=== PATIENT | female | born 1935 | race Two or more races ===

== ENCOUNTER 2017-03-31 20:09 | Inpatient (IN) | payer MEDICARE, MEDICAID ==
[~2017-03-31] VITALS: Ht 134.6 cm; Wt 50.4 kg
[~2017-03-31 20:09] MED LIST: AMLO5TAB2 PO; ATOR40TA78 PO; CALC0.25 PO; CEFD300C37 PO; MEMA5TAB PO; METO25TA35 PO; NITR0.4T SL; VIT1TABL73 PO
[2017-03-31] MEDS ORDERED: ASPI-515 PO (20:19)
[2017-03-31] MEDS ORDERED: SODIUM CHLORIDE FLUSH 10ML SYR IVF ONE (20:30)
[2017-03-31 20:54] LABS: BASOPHILS # (AUTO) 0.07 x10^3/uL (0-0.1); BASOPHILS % (AUTO) 1 % (0-1); EOSINOPHILS # (AUTO) 0.34 x10^3/uL (0-0.4); EOSINOPHILS % (AUTO) 3 % (1-7); LYMPHOCYTES # (AUTO) 3.74 x10^3/uL (1-3.4); LYMPHOCYTES % (AUTO) 36 % (22-44); MD NO; MEAN CORPUSCULAR HEMOGLOBIN 19.1 pg (27.0-34.8); MEAN CORPUSCULAR VOLUME 61.6 fL (80-100); MEAN PLATELET VOLUME 9.4 fL (7.4-10.4); MONOCYTES # (AUTO) 0.53 x10^3/uL (0.2-0.8); MONOCYTES % (AUTO) 5 % (2-9); NEUTROPHILS # (AUTO) 5.65 x10^3/uL (1.8-6.8); NEUTROPHILS % (AUTO) 55 % (42-75); PLATELET COUNT 258 x10^3/uL (130-400); RED BLOOD COUNT 5.38 x10^6/uL (3.82-5.3)
[2017-03-31] MEDS ORDERED: CEFTRIAXONE PMX 1GM/50ML 50 ML IVPB ONE (21:00)
[2017-03-31 21:06] LABS: ALANINE AMINOTRANSFERASE 41 U/L (12-78); ALBUMIN 3.6 g/dL (3.4-5.0); ANION GAP 12 mmol/L (5-15); CALCIUM 8.5 mg/dL (8.5-10.1); CHLORIDE 111 mmol/L (98-107)
[2017-03-31] MEDS ORDERED: CEFTRIAXONE PMX 1GM/50ML 50 ML ONE (21:07)
[2017-03-31 21:10] LABS: ALKALINE PHOSPHATASE 225 U/L (45-117); BILIRUBIN,TOTAL 0.6 mg/dL (0.2-1.0); TOTAL PROTEIN 7.5 g/dL (6.4-8.2); TROPONIN I < 0.015 ng/mL (0.000-0.045)
[2017-03-31] MEDS ORDERED: SODIUM CHLORIDE 0.9% 1,000ML IVBOLUS ONE (21:30)
[2017-03-31] MEDS ORDERED: SODIUM CHLORIDE 0.9% 1,000 ML IV ONE (22:01)
[2017-03-31] MEDS ORDERED: SODIUM CHLORIDE 0.9% 1,000 ML IV SCH (22:14)
[2017-03-31] MEDS: CEFTRIAXONE PMX 1GM/50ML 50 ML IV SCH (22:25)
[2017-03-31] MEDS ORDERED: SODIUM CHLORIDE FLUSH 10ML SYR IVF PRN (22:30)
[2017-03-31] MEDS ORDERED: AZITHROMYCIN 500 MG in SODIUM CHLORIDE 0.9% 250 ML IV SCH (22:30)
[2017-03-31] MEDS ORDERED: ACETAMINOPHEN 325 MG TABLET PO PRN (22:30)
[2017-03-31] MEDS ORDERED: ONDANSETRON 2MG/ML, 2ML IVPush PRN (22:30)
[2017-03-31 23:23] VITALS: BP 144/74
[2017-04-01] MEDS: MEMANTINE 5MG TABLET PO SCH ×3 (00:47→20:24)
[2017-04-01] MEDS: HEPARIN 5,000 UNITS/ML, 1ML SQ SCH ×3 (00:48→22:56)
[2017-04-01 03:24] VITALS: BP 128/72
[2017-04-01 05:29] LABS: BASOPHILS % (AUTO) 1 % (0-1); EOSINOPHILS # (AUTO) 0.19 x10^3/uL (0-0.4); EOSINOPHILS % (AUTO) 3 % (1-7); LYMPHOCYTES # (AUTO) 2.15 x10^3/uL (1-3.4); LYMPHOCYTES % (AUTO) 28 % (22-44); MD NO; MEAN CORPUSCULAR HEMOGLOBIN 19.4 pg (27.0-34.8); MEAN CORPUSCULAR HGB CONC 31.3 g/dL (32.4-35.8); MEAN CORPUSCULAR VOLUME 62.1 fL (80-100); MEAN PLATELET VOLUME 9.5 fL (7.4-10.4); MONOCYTES # (AUTO) 0.51 x10^3/uL (0.2-0.8); MONOCYTES % (AUTO) 7 % (2-9); NEUTROPHILS # (AUTO) 4.83 x10^3/uL (1.8-6.8); NEUTROPHILS % (AUTO) 62 % (42-75); PLATELET COUNT 205 x10^3/uL (130-400); RED BLOOD COUNT 4.38 x10^6/uL (3.82-5.3); RED CELL DISTRIBUTION WIDTH 16.2 % (9.6-15.2)
[2017-04-01 05:43] LABS: CHLORIDE 117 mmol/L (98-107)
[2017-04-01 06:03] LABS: ANION GAP 9 mmol/L (5-15); CALCIUM 7.8 mg/dL (8.5-10.1); CREATININE 2.05 mg/dL (0.55-1.02); TROPONIN I 0.016 ng/mL (0.000-0.045)
[2017-04-01 08:02] VITALS: BP 138/72
[2017-04-01] MEDS ORDERED: ASPIRIN 81 MG TABLET EC PO SCH (09:00)
[2017-04-01] MEDS: METOPROLOL TARTRATE 25 MG TABLET PO SCH ×2 (09:10→20:24)
[2017-04-01] MEDS: CALCITRIOL 0.25 MCG CAPSULE PO SCH (09:10)
[2017-04-01] MEDS: MULTIVITS,STRESS FORMULA 1 TABLET PO SCH (09:10)
[2017-04-01] MEDS: ASPIRIN 81 MG TABLET CHEW PO SCH (09:30)
[2017-04-01 14:33] VITALS: BP 148/66
[2017-04-01] MEDS ORDERED: SODIUM CHLORIDE 0.9% 1,000 ML IV SCH (18:00)
[2017-04-01] MEDS ORDERED: SENNA/DOCUSATE TABLET PO PRN (18:00)
[2017-04-01] MEDS ORDERED: MAGNESIUM CITRATE 300ML ORAL SOL PO PRN (18:00)
[2017-04-01] MEDS ORDERED: GLYCERIN ADULT SUPP PR PRN (18:00)
[2017-04-01] MEDS ORDERED: POLYETHYLENE GLYCOL 17 GM PACKET PO ONE (18:00)
[2017-04-01 20:00] VITALS: BP 124/74
[2017-04-01] MEDS ORDERED: ATORVASTATIN 40 MG TABLET PO SCH (21:00)
[2017-04-01] MEDS: CEFTRIAXONE PMX 1GM/50ML 50 ML IV SCH (22:56)
[2017-04-02 01:16] VITALS: BP 125/55
[2017-04-02 06:13] LABS: CHLORIDE 116 mmol/L (98-107)
[2017-04-02 06:14] LABS: BASOPHILS % (AUTO) 1 % (0-1); EOSINOPHILS # (AUTO) 0.35 x10^3/uL (0-0.4); EOSINOPHILS % (AUTO) 5 % (1-7); LYMPHOCYTES # (AUTO) 3.11 x10^3/uL (1-3.4); LYMPHOCYTES % (AUTO) 41 % (22-44); MD NO; MEAN CORPUSCULAR HEMOGLOBIN 19.3 pg (27.0-34.8); MEAN CORPUSCULAR HGB CONC 30.9 g/dL (32.4-35.8); MEAN CORPUSCULAR VOLUME 62.5 fL (80-100); MEAN PLATELET VOLUME 9.8 fL (7.4-10.4); MONOCYTES # (AUTO) 0.47 x10^3/uL (0.2-0.8); MONOCYTES % (AUTO) 6 % (2-9); NEUTROPHILS % (AUTO) 47 % (42-75); PLATELET COUNT 225 x10^3/uL (130-400); RED BLOOD COUNT 4.63 x10^6/uL (3.82-5.3); RED CELL DISTRIBUTION WIDTH 16.5 % (9.6-15.2)
[2017-04-02 06:17] LABS: ANION GAP 12 mmol/L (5-15); CALCIUM 7.9 mg/dL (8.5-10.1); CREATININE 1.89 mg/dL (0.55-1.02)
[2017-04-02 06:22] LABS: MICROSCOPIC AUTO
[2017-04-02 06:25] LABS: CULTURE INDICATED? YES
[2017-04-02 06:40] VITALS: BP 182/79
[2017-04-02] MEDS ORDERED: NITR50CA11 PO (07:41)
[2017-04-02] MEDS ORDERED: [UNRECOGNIZED DRUG - REMARK] XX PRN (08:00)
[2017-04-02] MEDS: METOPROLOL TARTRATE 25 MG TABLET PO SCH (08:18)
[2017-04-02] MEDS: ASPIRIN 81 MG TABLET CHEW PO SCH (08:18)
[2017-04-02] MEDS: MEMANTINE 5MG TABLET PO SCH (08:18)
[2017-04-02] MEDS: HEPARIN 5,000 UNITS/ML, 1ML SQ SCH (08:18)
[2017-04-02] MEDS: MULTIVITS,STRESS FORMULA 1 TABLET PO SCH (08:18)
[2017-04-02] MEDS: CALCITRIOL 0.25 MCG CAPSULE PO SCH (08:18)
[2017-04-02] MEDS ORDERED: NITROFURANTOIN 50 MG CAPSULE PO SCH (09:00)
== END 2017-04-02 12:53 | disposition home or self-care (01) | DRG 682 ==
LOC: ED 21:57 → EDIP 22:01 → SUATTDRO 22:08 → 4WST 23:28
PROVIDERS: ADMIT Hospitalist; ATTEND Hospitalist
DX: N17.9 Acute kidney failure, unspecified (principal); J96.01 Acute respiratory failure with hypoxia; E87.2 Acidosis; N18.4 Chronic kidney disease, stage 4 (severe); F03.90 Unspecified dementia, unspecified severity, without behavioral disturbance, psychotic disturbance, mood disturbance, and anxiety; D50.9 Iron deficiency anemia, unspecified; E78.5 Hyperlipidemia, unspecified; I12.9 Hypertensive chronic kidney disease with stage 1 through stage 4 chronic kidney disease, or unspecified chronic kidney disease; R32 Unspecified urinary incontinence; Z66 Do not resuscitate; D72.829 Elevated white blood cell count, unspecified; Z87.891 Personal history of nicotine dependence; Z86.73 Personal history of transient ischemic attack (TIA), and cerebral infarction without residual deficits
CPT/HCPCS: 36415; 36600; 71045; 71250; 78582; 80048; 80053; 81001; 82803; 83605; 83735; 83880; 84100; 84484; 85025; 85379; 87040; 87077; 87086; 87186; 93005; 96365; J0456; J0696; J1644; A9540; A9558; C9898; J7030; J7050

== ENCOUNTER → 2017-07-19 | Outpatient (CLI) | payer MEDICARE, MEDICAID ==
[~2017-07-19] MED LIST changes: +AMLO10TA2 PO; +ASPI-515 PO; +FOLI0.8T3 PO; +NITR50CA11 PO; +[UNRECOGNIZED DRUG - OTHER]; +[UNRECOGNIZED DRUG - OTHER] PO; +[UNRECOGNIZED DRUG - OTHER] PO; +[UNRECOGNIZED DRUG - SUPPLY]
== END | disposition home or self-care (01) ==
LOC: CFH 10:57 → MERGE 11:30
PROVIDERS: ATTEND Internal Medicine Nephrology
DX: I12.9 Hypertensive chronic kidney disease with stage 1 through stage 4 chronic kidney disease, or unspecified chronic kidney disease (principal); N18.4 Chronic kidney disease, stage 4 (severe); D64.9 Anemia, unspecified; N25.81 Secondary hyperparathyroidism of renal origin; E55.9 Vitamin D deficiency, unspecified; R80.9 Proteinuria, unspecified
CPT/HCPCS: 76770

== ENCOUNTER 2018-05-13 05:08 | Inpatient (IN) | payer MEDICARE, MEDICAID ==
[~2018-05-13] VITALS: Ht 142.2 cm; Wt 45.7 kg
[~2018-05-13 05:08] MED LIST changes: +AMLO-150 PO; -AMLO10TA2 PO; +AMLO10TA8 PO; +AMLO2.5T5 PO; -AMLO5TAB2 PO; +BISA10SU54 PR; +ERTA1VIA IV; +MEMA5TAB14 PO; +ONDA4TAB13 SL; +POLY17PO5 PO; +SENN-177 PO; +SENN-99 PO; +SODI650T PO; +ZONI25CA2 PO; +ZONI50CA2 PO
--- NOTE | 2018-05-13 05:08 | NUR ---
PT BIB EMS FROM HOME ACCOMPANIED BY DAUGHTER. PT HAD SZ AT HOME, GIVEN VERSED 2.5MG IM BY EMS AND IS NOW UNRESPONSIVE. PT HAD ONSET OF SZ IN 2018. DAUGHTER STATES PT DOES NOT HAVE GRAND MAL SEIZURE, ONLY AFFECTED AREA IS FROM NECK UP. MD AT BEDSIDE, EKG DONE. PT PLACED ON MONITOR, IV STARTED BY YANETH GREEN.
[2018-05-13] MEDS ORDERED: SODIUM CHLORIDE FLUSH 10ML SYR IVF ONE (05:30)
[2018-05-13 05:50] LABS: ALANINE AMINOTRANSFERASE 18 U/L (12-78); ALBUMIN 3.4 g/dL (3.4-5.0); ANION GAP 14 mmol/L (5-15); CALCIUM 8.8 mg/dL (8.5-10.1); CHLORIDE 113 mmol/L (98-107)
[2018-05-13 05:52] LABS: ALKALINE PHOSPHATASE 114 U/L (45-117); BILIRUBIN,TOTAL 0.9 mg/dL (0.2-1.0); CREATININE 2.41 mg/dL (0.55-1.02); TOTAL PROTEIN 6.5 g/dL (6.4-8.2)
[2018-05-13 06:03] LABS: MEAN CORPUSCULAR HEMOGLOBIN 19.4 pg (27.0-34.8); MEAN CORPUSCULAR HGB CONC 31.2 g/dL (32.4-35.8); MEAN CORPUSCULAR VOLUME 62.3 fL (80-100); MEAN PLATELET VOLUME 12.9 fL (7.4-10.4); PLATELET COUNT 276 x10^3/uL (130-400); RED BLOOD COUNT 5.62 x10^6/uL (3.82-5.3)
--- NOTE | 2018-05-13 06:10 | NUR ---
STRAIGHT CATH DONE USING STERILE TECHNIQUE. URINE YELLOW AND CLOUDY. PT TOLERATED PROCEDURE WELL. URINE SAMPLE WALKED TO LAB.
[2018-05-13] MEDS ORDERED: SODIUM CHLORIDE 0.9% 1,000 ML IV ONE (06:20)
[2018-05-13 06:27] LABS: MD YES
[2018-05-13 06:29] LABS: ANISOCYTOSIS 1+; BASOS#(MANUAL) 0.06 x10^3/uL (0-0.1); BASOS% (MANUAL) 1 % (0-1); HYPOCHROMIA 1+; LYMPH#(MANUAL) 2.83 x10^3/uL (1-3.4); LYMPHS% (MANUAL) 48 % (22-44); MICROCYTOSIS 2+; MONOS#(MANUAL) 0.06 x10^3/uL (0.3-2.7); MONOS% (MANUAL) 1 % (2-9); POLYCHROMASIA 1+; SEG#(MANUAL) 2.95 x10^3/uL (1.8-6.8); SEGS% (MANUAL) 50 % (42-75)
[2018-05-13 06:30] LABS: <PLATELET ESTIMATE> ADEQUATE; ECHINOCYTES 1+; LARGE PLATELETS 1+; OVALOCYTES 1+; TARGET CELLS 1+; TEAR DROPS 1+
[2018-05-13 06:31] LABS: SCHISTOCYTES 1+
[2018-05-13 06:39] LABS: CULTURE INDICATED? YES; MICROSCOPIC INDICATED
--- NOTE | 2018-05-13 06:55 | NUR ---
REPORT TO JOAO GREEN. POC DISCUSSED, CARE RELEASED. NO CHANGE IN PT CONDITION. DAUGHTER REMAINS AT BEDSIDE.
[2018-05-13] MEDS ORDERED: CEFTRIAXONE PMX 1GM/50ML 50 ML ONE (09:58)
[2018-05-13] MEDS ORDERED: CEFTRIAXONE PMX 1GM/50ML 50 ML IV ONE (10:00)
--- NOTE | 2018-05-13 10:52 | NUR ---
teleneuro machine at bedside. awaiting consulting neuro. at this time
[2018-05-13] MEDS ORDERED: ACETAMINOPHEN 325 MG TABLET PO PRN (11:00)
[2018-05-13] MEDS ORDERED: hydrALAzine 20 MG/ML, 1ML IVPush PRN (11:00)
[2018-05-13] MEDS ORDERED: GUAIFENESIN/DM 200-20MG, 10ML UDC PO PRN (11:00)
[2018-05-13] MEDS ORDERED: ONDANSETRON 2MG/ML, 2ML IVPush PRN (11:00)
[2018-05-13] MEDS ORDERED: ONDANSETRON ODT 4 MG PO PRN (11:00)
[2018-05-13] MEDS ORDERED: POLYETHYLENE GLYCOL 17 GM PACKET PO PRN (11:00)
[2018-05-13] MEDS ORDERED: LIDODERM 5% PATCH TD PRN (11:00)
[2018-05-13] MEDS ORDERED: DOCUSATE 100 MG CAPSULE PO PRN (11:00)
--- NOTE | 2018-05-13 11:02 | NUR ---
DR. JUDGE S. REQUESTED TELE NEURO CONSULT. TELE NEURO CALLED BACK AND CALL WAS TRANSFERRED TO NU LOCKE'S CELL NUMBER, SHE DID NOT ANSWER. TELE NEURO CALLED BACK TO THE ER, DR. RAMESH UNAVAILABLE. PATIENT UNDER CARE OF DR. JUDGE.
[2018-05-13 11:45] LABS: FREE T4 (FREE THYROXINE) 1.28 ng/dL (0.76-1.46); THYROID STIMULATING HORMONE 10.2 mIU/L (0.358-3.740)
--- NOTE | 2018-05-13 12:54 | NUR ---
LISAAR TO NICKIE GREEN VIA TELEPHONE
[2018-05-13] MEDS ORDERED: LORazepam 2 MG/ML, 1ML IVPush PRN (13:30)
[2018-05-13 13:49] VITALS: BP 155/74
[2018-05-13] MEDS: SODIUM CHLORIDE 0.9% 1,000 ML IV SCH ×2 (14:43→22:14)
[2018-05-13] MEDS ORDERED: SODIUM CHLORIDE 0.9% ONE (17:00)
[2018-05-13] MEDS ORDERED: [UNRECOGNIZED DRUG - OTHER] ONE (17:00)
[2018-05-13] MEDS ORDERED: PHARMACY INSTRUCTION MC PRN (18:00)
[2018-05-13 20:10] VITALS: BP 147/75
[2018-05-13] MEDS ORDERED: FILTER 0.22 MICRON IV ONE (21:30)
[2018-05-13] MEDS ORDERED: PHENYTOIN SODIUM 750 MG in SODIUM CHLORIDE 0.9% 100 ML IV ONE (21:30)
[2018-05-13] MEDS: ERTAPENEM 0.5 GM in SODIUM CHLORIDE 0.9% 50 ML IV SCH (21:48)
[2018-05-13] MEDS ORDERED: METOPROLOL 1 MG/ML, 5ML IVPush ONE (22:30)
[2018-05-14 01:39] VITALS: BP 133/70
[2018-05-14] MEDS: BISACODYL 10 MG SUPP PR PRN (06:23)
[2018-05-14] MEDS: SODIUM CHLORIDE 0.9% 1,000 ML IV SCH ×3 (06:25→22:49)
[2018-05-14 06:37] VITALS: BP 145/79
[2018-05-14] MEDS ORDERED: PHENYTOIN SODIUM 50 MG/ML, 2ML IVPush SCH (09:00)
[2018-05-14] MEDS ORDERED: CEFTRIAXONE PMX 1GM/50ML 50 ML IV SCH (10:00)
[2018-05-14 12:35] VITALS: BP 135/65
--- NOTE | 2018-05-14 14:36 | NUR ---
REC NTL/JUSTYNAE; swallow precautions sheet posted at bedside Addendum: 05/14/18 at [address] Amended: Links added.
[2018-05-14] MEDS: ERTAPENEM 0.5 GM in SODIUM CHLORIDE 0.9% 50 ML IV SCH (21:06)
[2018-05-14 21:17] VITALS: BP 140/69
[2018-05-15 02:15] VITALS: BP 147/64
[2018-05-15] MEDS: SODIUM CHLORIDE 0.9% 1,000 ML IV SCH ×3 (06:17→19:55)
[2018-05-15 07:07] VITALS: BP 149/68
[2018-05-15] MEDS ORDERED: ACETAMINOPHEN 325 MG TABLET PO PRN (09:00)
[2018-05-15] MEDS: ASPIRIN 81 MG TABLET CHEW PO SCH (09:15)
[2018-05-15] MEDS: MEMANTINE 5MG TABLET PO SCH (09:15)
[2018-05-15] MEDS: METOPROLOL TARTRATE 25 MG TABLET PO SCH (09:16)
[2018-05-15 12:13] VITALS: BP 149/76
[2018-05-15 19:59] VITALS: BP 145/70
[2018-05-15] MEDS: ERTAPENEM 0.5 GM in SODIUM CHLORIDE 0.9% 50 ML IV SCH (21:44)
[2018-05-16] VITALS (7 sets, daily range): BP systolic 129–183; BP diastolic 64–79
[2018-05-16 04:10] LABS: MEAN CORPUSCULAR HEMOGLOBIN 19.6 pg (27.0-34.8); MEAN CORPUSCULAR HGB CONC 31.4 g/dL (32.4-35.8); MEAN CORPUSCULAR VOLUME 62.3 fL (80-100); MEAN PLATELET VOLUME 9.6 fL (7.4-10.4); PLATELET COUNT 170 x10^3/uL (130-400); RED BLOOD COUNT 4.49 x10^6/uL (3.82-5.3); RED CELL DISTRIBUTION WIDTH 18.4 % (9.6-15.2)
[2018-05-16 04:11] LABS: ANION GAP 10 mmol/L (5-15); CALCIUM 7.8 mg/dL (8.5-10.1); CHLORIDE 119 mmol/L (98-107)
[2018-05-16 04:12] LABS: CREATININE 1.18 mg/dL (0.55-1.02)
[2018-05-16 05:17] LABS: MD YES
[2018-05-16 05:19] LABS: ANISOCYTOSIS 1+; BAND#(MANUAL) 0.06 x10^3/uL; BANDS%(MANUAL) 1 % (0-7); EOS#(MANUAL) 0.17 x10^3/uL (0.0-0.4); EOS% (MANUAL) 3 % (1-7); LYMPH#(MANUAL) 1.23 x10^3/uL (1-3.4); LYMPHS% (MANUAL) 22 % (22-44); MONOS#(MANUAL) 0.06 x10^3/uL (0.3-2.7); MONOS% (MANUAL) 1 % (2-9); SEG#(MANUAL) 4.09 x10^3/uL (1.8-6.8); SEGS% (MANUAL) 73 % (42-75)
[2018-05-16 05:20] LABS: <PLATELET ESTIMATE> ADEQUATE; MICROCYTOSIS 1+; OVALOCYTES 1+
[2018-05-16 05:21] LABS: LARGE PLATELETS 1+
[2018-05-16] MEDS: LORazepam 2 MG/ML, 1ML IVPush PRN ×2 (06:46→07:27)
[2018-05-16] MEDS ORDERED: VALPROATE SODIUM 500 MG in SODIUM CHLORIDE 0.9% 100 ML IV ONE (08:00)
[2018-05-16] MEDS ORDERED: ZONISAMIDE PO SCH (09:00)
[2018-05-16] MEDS: NS + 40MEQ KCL 1,000 ML IV SCH (10:47)
[2018-05-16] MEDS: METOPROLOL TARTRATE 25 MG TABLET PO SCH (15:00)
[2018-05-16] MEDS: MEMANTINE 5MG TABLET PO SCH (15:00)
[2018-05-16] MEDS: ASPIRIN 81 MG TABLET CHEW PO SCH (15:00)
[2018-05-16 17:27] LABS: ALBUMIN 2.6 g/dL (3.4-5.0); BILIRUBIN, DIRECT 0.2 mg/dL (0.1-0.2)
[2018-05-16 17:28] LABS: BILIRUBIN,INDIRECT 0.3 mg/dL (0.0-2.0); BILIRUBIN,TOTAL 0.5 mg/dL (0.2-1.0); TOTAL PROTEIN 5.4 g/dL (6.4-8.2)
[2018-05-16] MEDS: ERTAPENEM 0.5 GM in SODIUM CHLORIDE 0.9% 50 ML IV SCH (22:59)
[2018-05-17] MEDS: NS + 40MEQ KCL 1,000 ML IV SCH (01:10)
[2018-05-17 02:16] VITALS: BP 140/68
[2018-05-17 06:41] LABS: ANION GAP 7 mmol/L (5-15); CALCIUM 7.6 mg/dL (8.5-10.1); CHLORIDE 121 mmol/L (98-107)
[2018-05-17 06:43] LABS: % IRON SATURATION 17 % (20-55); CREATININE 1.21 mg/dL (0.55-1.02); IRON LEVEL 31 mcg/dL (50-170); TOTAL IRON BINDING CAPACITY 186 mcg/dL (250-450)
[2018-05-17] MEDS ORDERED: SODIUM CHLORIDE 0.9% IV ONE (07:30)
[2018-05-17] MEDS ORDERED: MAGNESIUM SULFATE IV ONE (07:30)
[2018-05-17 08:14] VITALS: BP 137/76
[2018-05-17] MEDS: SODIUM CHLORIDE 0.9% 1,000 ML IV SCH (08:42)
[2018-05-17] MEDS: ZONISAMIDE PO SCH (08:46)
[2018-05-17] MEDS: METOPROLOL TARTRATE 25 MG TABLET PO SCH (12:00)
[2018-05-17] MEDS: MEMANTINE 5MG TABLET PO SCH (12:00)
[2018-05-17] MEDS: ASPIRIN 81 MG TABLET CHEW PO SCH (12:00)
[2018-05-17 13:05] VITALS: BP 158/78
[2018-05-17] MEDS: LORazepam 2 MG/ML, 1ML IVPush PRN (14:12)
[2018-05-17 14:14] VITALS: BP 148/79
[2018-05-17] MEDS ORDERED: LEVOFLOXACIN/PMX 500MG/100ML 100 ML IV ONE (17:00)
[2018-05-17 19:43] VITALS: BP 139/74
[2018-05-18] MEDS: SODIUM CHLORIDE 0.9% 1,000 ML IV SCH ×2 (00:11→16:43)
[2018-05-18 01:25] VITALS: BP 157/97
[2018-05-18] MEDS: LORazepam 2 MG/ML, 1ML IVPush PRN (02:22)
[2018-05-18 07:35] VITALS: BP 146/87
[2018-05-18 08:10] LABS: ANION GAP 11 mmol/L (5-15); CHLORIDE 119 mmol/L (98-107); CREATININE 1.22 mg/dL (0.55-1.02)
[2018-05-18 08:51] LABS: BASOPHILS # (AUTO) 0.02 x10^3/uL (0-0.1); BASOPHILS % (AUTO) 0 % (0-1); EOSINOPHILS # (AUTO) 0.03 x10^3/uL (0-0.4); EOSINOPHILS % (AUTO) 1 % (1-7); LYMPHOCYTES # (AUTO) 0.96 x10^3/uL (1-3.4); LYMPHOCYTES % (AUTO) 18 % (22-44); MD NO; MEAN CORPUSCULAR HEMOGLOBIN 19.2 pg (27.0-34.8); MEAN CORPUSCULAR HGB CONC 31.4 g/dL (32.4-35.8); MEAN CORPUSCULAR VOLUME 61.3 fL (80-100); MEAN PLATELET VOLUME 9.8 fL (7.4-10.4); MONOCYTES # (AUTO) 0.26 x10^3/uL (0.2-0.8); MONOCYTES % (AUTO) 5 % (2-9); NEUTROPHILS # (AUTO) 4.17 x10^3/uL (1.8-6.8); NEUTROPHILS % (AUTO) 77 % (42-75); PLATELET COUNT 174 x10^3/uL (130-400); RED BLOOD COUNT 4.51 x10^6/uL (3.82-5.3); RED CELL DISTRIBUTION WIDTH 17.9 % (9.6-15.2)
[2018-05-18] MEDS: ZONISAMIDE PO SCH (09:00)
[2018-05-18] MEDS: CARVEDILOL 3.125 MG TABLET PO SCH ×2 (09:48→17:00)
[2018-05-18] MEDS: ASPIRIN 81 MG TABLET CHEW PO SCH (09:49)
[2018-05-18] MEDS: MEMANTINE 5MG TABLET PO SCH (09:49)
[2018-05-18] MEDS: METOPROLOL TARTRATE 25 MG TABLET PO SCH (09:49)
[2018-05-18 12:56] VITALS: BP 146/70
[2018-05-18 14:49] VITALS: BP 156/60
[2018-05-18 15:09] VITALS: BP 145/73
[2018-05-18] MEDS: VALPROATE SODIUM 250 MG in DEXTROSE 5% 100 ML IV SCH ×2 (16:03→21:31)
[2018-05-18] MEDS: LEVOFLOXACIN/PMX 250MG/50ML 50 ML IV SCH (16:41)
[2018-05-18 19:38] VITALS: BP 132/71
[2018-05-18] MEDS ORDERED: VALPROATE SODIUM 250 MG in DEXTROSE 5% 100 ML IV SCH (21:00)
[2018-05-19 02:04] VITALS: BP 137/67
[2018-05-19] MEDS: CARVEDILOL 3.125 MG TABLET PO SCH ×2 (05:47→17:34)
[2018-05-19 06:41] LABS: ALANINE AMINOTRANSFERASE 11 U/L (12-78); ALBUMIN 2.4 g/dL (3.4-5.0); ANION GAP 8 mmol/L (5-15); CALCIUM 7.8 mg/dL (8.5-10.1); CHLORIDE 118 mmol/L (98-107); CREATININE 1.27 mg/dL (0.55-1.02)
[2018-05-19 06:43] LABS: ALKALINE PHOSPHATASE 81 U/L (45-117); BILIRUBIN,TOTAL 0.6 mg/dL (0.2-1.0); TOTAL PROTEIN 4.9 g/dL (6.4-8.2)
[2018-05-19] MEDS ORDERED: SODIUM CHLORIDE 0.9% 1,000 ML IV SCH (07:30)
[2018-05-19] MEDS: ZONISAMIDE PO SCH (09:00)
[2018-05-19] MEDS: ASPIRIN 81 MG TABLET CHEW PO SCH (09:00)
[2018-05-19] MEDS: MEMANTINE 5MG TABLET PO SCH (09:00)
[2018-05-19 09:14] VITALS: BP 153/79
[2018-05-19] MEDS: VALPROATE SODIUM 250 MG in DEXTROSE 5% 100 ML IV SCH ×2 (09:48→20:44)
[2018-05-19 12:36] VITALS: BP 130/70
[2018-05-19 12:38] VITALS: BP 126/68
[2018-05-19] MEDS: BISACODYL 10 MG SUPP PR PRN (15:41)
[2018-05-19] MEDS: LEVOFLOXACIN/PMX 250MG/50ML 50 ML IV SCH (17:31)
[2018-05-19] MEDS: SODIUM CHLORIDE 0.9% 1,000 ML IV SCH (17:31)
[2018-05-19 20:03] VITALS: BP 149/79
[2018-05-20 01:40] VITALS: BP 150/75
[2018-05-20] MEDS: CARVEDILOL 3.125 MG TABLET PO SCH ×2 (05:32→17:50)
[2018-05-20 07:02] VITALS: BP 127/76
[2018-05-20] MEDS: ASPIRIN 81 MG TABLET CHEW PO SCH (09:00)
[2018-05-20] MEDS: MEMANTINE 5MG TABLET PO SCH (09:00)
[2018-05-20] MEDS: ZONISAMIDE PO SCH (09:35)
[2018-05-20] MEDS: VALPROATE SODIUM 250 MG in DEXTROSE 5% 100 ML IV SCH ×2 (09:35→21:36)
[2018-05-20 14:37] VITALS: BP 145/65
[2018-05-20] MEDS ORDERED: LEVOFLOXACIN 250 MG TABLET PO SCH (17:00)
[2018-05-20] MEDS: SODIUM CHLORIDE 0.9% 1,000 ML IV SCH (17:46)
[2018-05-20] MEDS ORDERED: LEVOFLOXACIN/PMX 250MG/50ML 50 ML IV SCH (18:00)
[2018-05-20 20:53] VITALS: BP 125/80
[2018-05-20 23:41] VITALS: BP 132/94
[2018-05-21 01:05] VITALS: BP 102/65
[2018-05-21] MEDS: CARVEDILOL 3.125 MG TABLET PO SCH ×2 (06:00→20:16)
[2018-05-21 08:10] VITALS: BP 113/86
[2018-05-21] MEDS: ZONISAMIDE PO SCH (10:08)
[2018-05-21] MEDS: ASPIRIN 81 MG TABLET CHEW PO SCH (10:09)
[2018-05-21] MEDS: MEMANTINE 5MG TABLET PO SCH (10:09)
[2018-05-21] MEDS: VALPROATE SODIUM 250 MG in DEXTROSE 5% 100 ML IV SCH ×2 (11:13→20:17)
[2018-05-21 14:45] VITALS: BP 159/78
[2018-05-21] MEDS: SODIUM CHLORIDE 0.9% 1,000 ML IV SCH (17:00)
[2018-05-21] MEDS ORDERED: LEVOFLOXACIN 250 MG TABLET PO SCH (18:00)
[2018-05-21 19:22] VITALS: BP 144/82
[2018-05-22 01:29] VITALS: BP 141/75
[2018-05-22 08:20] VITALS: BP 138/77
[2018-05-22] MEDS: CARVEDILOL 3.125 MG TABLET PO SCH ×2 (08:39→17:33)
[2018-05-22] MEDS: ZONISAMIDE PO SCH (08:39)
[2018-05-22] MEDS: VALPROATE SODIUM 250 MG in DEXTROSE 5% 100 ML IV SCH ×2 (08:39→21:00)
[2018-05-22] MEDS: ASPIRIN 81 MG TABLET CHEW PO SCH (08:40)
[2018-05-22] MEDS: MEMANTINE 5MG TABLET PO SCH (08:40)
[2018-05-22 12:30] VITALS: BP 152/73
[2018-05-22] MEDS ORDERED: FERROUS GLUCONATE 324 MG TABLET PO SCH ×3 (17:00→17:09)
[2018-05-22] MEDS ORDERED: FERROUS SULFATE 325 MG TABLET PO SCH (17:00)
[2018-05-22 19:22] VITALS: BP 174/82
[2018-05-22] MEDS: SODIUM CHLORIDE 0.9% 1,000 ML IV SCH (21:00)
[2018-05-23 00:18] VITALS: BP 168/79
[2018-05-23 02:39] VITALS: BP 178/77
[2018-05-23] MEDS: CARVEDILOL 3.125 MG TABLET PO SCH ×2 (06:00→18:28)
[2018-05-23 08:04] VITALS: BP 110/61
[2018-05-23] MEDS: MEMANTINE 5MG TABLET PO SCH (09:00)
[2018-05-23] MEDS: ASPIRIN 81 MG TABLET CHEW PO SCH (09:00)
[2018-05-23] MEDS: ZONISAMIDE PO SCH (09:00)
[2018-05-23] MEDS: VALPROATE SODIUM 250 MG in DEXTROSE 5% 100 ML IV SCH (12:02)
[2018-05-23] MEDS ORDERED: ZONISAMIDE PO (13:24)
[2018-05-23] MEDS ORDERED: CARV3.1212 PO (13:24)
[2018-05-23] MEDS ORDERED: FERR325T16 PO (13:24)
[2018-05-23] MEDS ORDERED: DIVA-59 PO (13:24)
[2018-05-23 15:00] VITALS: BP 137/86
[2018-05-24] MEDS ORDERED: FERROUS GLUCONATE 324 MG TABLET PO SCH (09:00)
== END 2018-05-23 18:48 | disposition home health service (06) | DRG 871 ==
LOC: ED 06:56 → EDIP 10:41 → 4WST 13:37
PROVIDERS: ADMIT Internal Medicine; ATTEND Internal Medicine
PROC: 0T9B70Z Drainage of Bladder with Drainage Device, Via Natural or Artificial Opening (ICD-10-PCS; principal; 2018-05-13)
DX: A41.9 Sepsis, unspecified organism (principal); N17.0 Acute kidney failure with tubular necrosis; R53.2 Functional quadriplegia; G93.41 Metabolic encephalopathy; N39.0 Urinary tract infection, site not specified; E44.0 Moderate protein-calorie malnutrition; N18.4 Chronic kidney disease, stage 4 (severe); I47.2 Ventricular tachycardia; E87.2 Acidosis; G40.909 Epilepsy, unspecified, not intractable, without status epilepticus; E11.22 Type 2 diabetes mellitus with diabetic chronic kidney disease; S01.512A Laceration without foreign body of oral cavity, initial encounter; R62.7 Adult failure to thrive; R29.810 Facial weakness; Z51.5 Encounter for palliative care; I12.9 Hypertensive chronic kidney disease with stage 1 through stage 4 chronic kidney disease, or unspecified chronic kidney disease; F01.50 Vascular dementia, unspecified severity, without behavioral disturbance, psychotic disturbance, mood disturbance, and anxiety; E83.42 Hypomagnesemia; E83.51 Hypocalcemia; E87.6 Hypokalemia; D50.9 Iron deficiency anemia, unspecified; R13.10 Dysphagia, unspecified; K59.00 Constipation, unspecified; D56.3 Thalassemia minor; Z79.899 Other long term (current) drug therapy; Z87.440 Personal history of urinary (tract) infections; Z74.01 Bed confinement status; Z88.8 Allergy status to other drugs, medicaments and biological substances; Z82.49 Family history of ischemic heart disease and other diseases of the circulatory system; Z83.6 Family history of other diseases of the respiratory system; Z83.3 Family history of diabetes mellitus; Z86.73 Personal history of transient ischemic attack (TIA), and cerebral infarction without residual deficits; Z68.22 Body mass index [BMI] 22.0-22.9, adult
CPT/HCPCS: 36415; 36600; 71045; 80048; 80053; 80076; 80164; 81001; 82140; 82330; 82803; 82962; 83540; 83550; 83605; 83735; 84100; 84439; 84443; 85025; 86850; 86900; 87077; 87086; 87184; 87186; 93005; 95816; 96361; 96365; 96375; 99291; G0378; J0696; J1335; J1956; J0360; J2060; J3480; J7030

== ENCOUNTER → 2018-08-18 | Outpatient (CLI) | payer MEDICARE, MEDICAID ==
[~2018-08-18] VITALS: Ht 142.2 cm; Wt 35.0 kg
[~2018-08-18] MED LIST changes: +CARV3.1212 PO; +DIVA-59 PO; +FERR325T16 PO; -NITR0.4T SL; +NITR0.4T41 SL; +ZONISAMIDE PO
[2018-08-18 14:10] VITALS: BP 103/63
== END | disposition home or self-care (01) ==
LOC: INFUSION 14:29
PROVIDERS: ATTEND Internal Medicine Nephrology
DX: Z45.2 Encounter for adjustment and management of vascular access device (principal); I12.0 Hypertensive chronic kidney disease with stage 5 chronic kidney disease or end stage renal disease; N18.6 End stage renal disease; D56.1 Beta thalassemia; G40.909 Epilepsy, unspecified, not intractable, without status epilepticus; F32.9 Major depressive disorder, single episode, unspecified; F41.9 Anxiety disorder, unspecified; Z79.82 Long term (current) use of aspirin; Z79.899 Other long term (current) drug therapy; Z87.891 Personal history of nicotine dependence
CPT/HCPCS: 96523